=== PATIENT | female | born 1950 | race Caucasian/White ===

== ENCOUNTER 2016-12-23 13:16 | Emergency (ER) | payer OTHER ==
[2016-12-23] MEDS ORDERED: Adacel (T-DAP) 0.5 ML VIAL ONE (13:24)
--- NOTE | 2016-12-23 20:47 | CT ---
CT OF THE BRAIN WITHOUT CONTRAST 12/23/[address] was performed. The ventricle are normal in size with no shift. No intracranial blee ding or extra-axial hematoma was seen. The calvarium appears intact. The sphenoid sinus is clear and the mastoid air cells are as well. IMPRESSION: No acute intracranial finding. POS: HOME
== END 2016-12-23 13:40 | disposition home or self-care (01) ==
LOC: BURERS 13:16
DX: S01.01XA Laceration without foreign body of scalp, initial encounter (principal); I10 Essential (primary) hypertension; Z23 Encounter for immunization; Z79.899 Other long term (current) drug therapy; W20.8XXA Other cause of strike by thrown, projected or falling object, initial encounter
CPT/HCPCS: 12002; 70450; 90471; 90715

== ENCOUNTER 2020-10-14 10:19 | Emergency (ER) | payer MEDICARE ==
[2020-10-14] MEDS ORDERED: Bupivacaine 0.5% 10 ML VIAL ONE (10:28)
[2020-10-14] MEDS ORDERED: Clindamycin 150 MG CAP ONE (11:13)
== END 2020-10-14 11:45 | disposition home or self-care (01) ==
LOC: BURERS 10:19
DX: S61.012A Laceration without foreign body of left thumb without damage to nail, initial encounter (principal); I10 Essential (primary) hypertension; Z79.899 Other long term (current) drug therapy; W23.0XXA Caught, crushed, jammed, or pinched between moving objects, initial encounter
CPT/HCPCS: 12002; J3490